=== PATIENT | male | born 1985 | race Hispanic/Latino ===

== ENCOUNTER 2017-05-17 03:20 | Emergency (ER) | payer OTHER ==
[~2017-05-17] VITALS: Ht 182.9 cm; Wt 98.4 kg
[2017-05-17 03:34] VITALS: BP 137/92
--- NOTE | 2017-05-17 04:01 | ED SKIN/ALLERGY COMPLAINT ---
History of Present Illness General Chief Complaint: Skin Rash/ Abcess Stated Complaint: " I GOT A CYST IN MY ARMPIT REAL BAD" Source: patient Exam Limitations: no limitations Vital Signs & Intake/Output Vital Signs & Intake/Output Vital Signs Date Time Temp Pulse Resp B/P B/P Pulse O2 O2 Flow FiO2 Mean Ox Delivery Rate 05/17 0334 97.0 98 20 137/92 98 Room Air Allergies Coded Allergies: No Known Allergies (05/17/17) Reconcile Medications Ibuprofen 800 MG TABLET 1 TAB PO TID PRN PAIN Triage Note: PT WITH LARGE BUMP IN RIGHT AXILLA. PT REPORTS THAT THIS BEGAN 3 DAYS AGO. PT ALSO STATES THAT HE HAS HX OF MRSA. PT REPORS 10/10 PAIN. Triage Nurses Notes Reviewed? yes HPI: Patient presents with an abscess to his right axilla. Similar symptoms multiple times in the past. Patient states he usually goes to [facility] and the surgical instrument maker come down and drained it. Patient denies any fevers or chills. Patient has a throbbing pressure sensation to his right axilla. The pain worsens when he put his arm down. There is no radiation. He rates the pain at 8 out of 10. Past History Travel History Traveled to [facility] past 21 day No Medical History Any Pertinent Medical History? 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 No Review of Systems Review of Systems Constitutional: Reports: no symptoms. Respiratory: Reports: no symptoms. Cardiovascular: Reports: no symptoms. GI: Reports: no symptoms. Musculoskeletal: Reports: no symptoms. Skin: Reports: see HPI. Neurological/Psychological: Reports: no symptoms. Immunologic/Allergic: Reports: no symptoms. Physical Exam Physical Exam General Appearance: well developed/nourished, alert, awake, anxious, moderate distress Eyes: Bilateral: PERRL, EOMI. Neck: normal inspection, supple, full range of motion Respiratory: normal breath sounds, chest non-tender, no respiratory distress, lungs clear Cardiovascular: regular rate/rhythm, normal peripheral pulses Neurologic/Psych: no motor/sensory deficits, awake, alert, oriented x 3, normal gait, normal mood/affect Skin: normal color, warm/dry, NO ERYTHMEA Skin Problem Location: RIGHT AXILLA Skin Problem Character: abcess Progress Differential Diagnosis: abscess/cellulitis Plan of Care: Current Medications Sig/Vikas Start time Last Medication Dose Stop Time Status Admin Ibuprofen 800 MG ONCE ONE 05/18 399 UNVr 05/17 (Motrin) 05/17 Lidocaine 20 ML ONCE ONE 05/18 399 UNVr 05/17 (Lidocaine 1%) 05/17 Departure Departure Disposition: HOME OR SELF CARE Condition: Stable Clinical Impression Primary Impression: Abscess Referrals: Patient Has No Primary Care Dr (PCP/Family) Prasanth SANTOS,Ady N. Additional Instructions: FOLLOW UP WITH DR. CRUZ TAKE MOTRIN NEEDED FOR PAIN RETURN IF SYMPTOMS WORSEN OR FOR ANY CONCERNS Departure Forms: Customer Survey General Discharge Information Prescriptions: Current Visit Scripts Ibuprofen 1 TAB PO TID PRN PAIN #30 TAB Procedures Incision and Drainage Site: RIGHT AXILLA Blade Size: 11 I & D Procedure: Yes: betadine prep. Progress: 1% LIDO, 2ML INCISED BLUNT DISSECTION GOOD DRAINAGE PTPW
[2017-05-17] MEDS ORDERED: IBUPROFEN800 M1 PO (04:04)
== END 2017-05-17 04:11 ==
LOC: ERH 03:20
DX: L02.411 Cutaneous abscess of right axilla (principal)

== ENCOUNTER 2017-06-05 16:24 | Emergency (ER) | payer OTHER ==
[~2017-06-05] VITALS: Ht 182.9 cm; Wt 98.4 kg
[~2017-06-05 16:24] MED LIST: IBUPROFEN800 M1 PO
[2017-06-05 16:28] VITALS: BP 132/77
[2017-06-05] MEDS ORDERED: BACTRIM DS TAB1 EACH PO (17:30)
[2017-06-05] MEDS ORDERED: IBUPROFEN800 M1 PO (17:30)
[2017-06-05] MEDS ORDERED: KEFLEX500 M1 PO (17:30)
--- NOTE | 2017-06-05 17:31 | ED SKIN/ALLERGY COMPLAINT ---
History of Present Illness General Chief Complaint: Skin Rash/ Abcess Stated Complaint: ABSCESS ON FOOT Source: patient, family Exam Limitations: no limitations Vital Signs & Intake/Output Vital Signs & Intake/Output Vital Signs Date Time Temp Pulse Resp B/P B/P Pulse O2 O2 Flow FiO2 Mean Ox Delivery Rate 06/05 1628 96.4 86 18 132/77 100 Room Air Allergies Coded Allergies: No Known Allergies (05/17/17) Reconcile Medications Cephalexin (Keflex) 500 MG CAPSULE 1 CAP PO TID Abscess Ibuprofen 800 MG TABLET 1 TAB PO TID PRN PAIN Ibuprofen 800 MG TABLET 1 TAB PO TID Abscess Pain Sulfamethoxazole/Trimethoprim (Bactrim Ds Tablet) 800 MG-160 MG TABLET 1 TAB PO BID Abscess Triage Note: PT STATES HE HAS AN ABCESS ON HIS RIGHT FOOT. PT REPORTS THAT IT IS DRAINING AND HE THINKS HE NEEDS ANTIBIOTICS. Triage Nurses Notes Reviewed? yes HPI: 31 yo M presenting with right foot swelling/pain. Swelling/pain to dorsum of right foot for the last 1-2 days, swelling worse overnight, rupture of swelling this morning with drainage of significant amount of purulent fluid, decrease in size of swelling, and improvement in pain. Multiple prior abscesses at different body sites, prior (+) MRSA testing. Denies associated fevers, chills, skin redness, leg pain, difficulty ambulating, chest pain, SOB, N/V. Past History Travel History Traveled to [place] past 21 day No Medical History Any Pertinent Medical History? 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 Yes Review of Systems Review of Systems Constitutional: Reports: no symptoms. EENTM: Reports: no symptoms. Respiratory: Reports: no symptoms. Cardiovascular: Reports: no symptoms. GI: Reports: no symptoms. Genitourinary: Reports: no symptoms. Musculoskeletal: Reports: no symptoms. Skin: Reports: see HPI. Neurological/Psychological: Reports: no symptoms. Hematologic/Endocrine: Reports: no symptoms. Immunologic/Allergic: Reports: no symptoms. All Other Systems: Reviewed and Negative Physical Exam Physical Exam General Appearance: well developed/nourished, mild distress Head: atraumatic Eyes: Bilateral: PERRL, EOMI. Ears, Nose, Throat: normal pharynx, normal ENT inspection, hearing grossly normal Neck: normal inspection, supple Respiratory: normal breath sounds Cardiovascular: regular rate/rhythm Gastrointestinal: soft, non-tender Back: normal inspection Extremities: swelling, tenderness Neurologic/Psych: awake, alert, oriented x 3, normal mood/affect Comments: Right Foot: Mild 1-2 cm swelling overlying dorsum of foot just proximal to 4th/ 5th toes, open area of skin at distal side of swelling with active purulent drainage, mild TTP, non-erythematous, no crepitus or bullae, 2+ DP pulse, no motor or sensory deficits Progress Differential Diagnosis: abscess/cellulitis, allergic reaction, anaphylaxis, angioedema, asthma, contact dermatitis, drug reaction, erythema multiforme, lyme disease, meningitis/sepsis, piyriasis rosea, RMSF, scarlet fever, shingles, syphilis/gonococcemia, toxic shock syndrome, urticaria Plan of Care: Physician MDM: 31 yo M presenting with right foot swelling/pain. VSS, afebrile, well appearing DDx: Abscess, trace erythema on exam suggestive of cellulitis, low concern for necrotiizing fasciitis, osteomyelitis, deep space foot infection. I discussed the possiblity of ongoing pus collection beneath the skin , offered ultrasound and possible drainage, patient declined further evaluation, satisfied that abscess is draining, would decline further drainage even if fluid found. Will treat with double coverage for MRSA. Patient given teaching about signs/Sx of worsening infection including erythema, pain, worsening swelling, warmpth or fevers, will return to ED for non-improvement on abx. D/Raz with return precautions, plan for close f/u with PMD or return to ED for wound check in 2-3 days. Patient ambulatory with an even gait without assitance. Departure Departure Disposition: HOME OR SELF CARE Condition: Stable Clinical Impression Primary Impression: Foot abscess Referrals: Patient Has No Primary Care Dr (PCP/Family) Additional Instructions: Take keflex and bactrim for the next 10 days. Follow up with your primary care physician in the next 2-3 days for wound re- check. Return to the ED if the abscess stops draining, gets larger, or you develop worsening pain, redness, or warmpth at abscess site. Return to the ED for any new, worsening, or concerning symptoms. Departure Forms: Customer Survey General Discharge Information Prescriptions: Current Visit Scripts Cephalexin (Keflex) 1 CAP PO TID #30 CAP Sulfamethoxazole/Trimethoprim (Bactrim Ds Tablet) 1 TAB PO BID #20 TAB Ibuprofen 1 TAB PO TID #30 TAB
== END 2017-06-05 18:11 ==
LOC: ERH 16:24
DX: L02.611 Cutaneous abscess of right foot (principal)